=== PATIENT | female | born 1955 | race Caucasian/White ===

== ENCOUNTER 2020-12-21 10:23 | Outpatient (CLI) | payer BC, SELFPAY ==
--- NOTE | ~2020-12-21 | XR_ITS ---
EXAMINATION: XR foot LT min 3V DATE: 12/21/2020 10:50 INDICATION: Left foot pain TECHNIQUE: Dorsoplantar, lateral, and 2 oblique views of the left foot were obtained. COMPARISON: None. FINDINGS: There is mild osteoarthritis of the first metatarsophalangeal joint and several interphalan geal joints. There is no fracture. There is dorsal soft tissue swelling of the foot. Dorsal and plant ar calcaneal enthesophytes are noted. IMPRESSION: 1. Dorsal soft tissue swelling of the foot without acute osseous abnormality identified. Reviewed, dictated and finalized at location B. IMPRESSION: 1. Dorsal soft tissue swelling of the foot without acute osseous abnormality id entified.
== END 2020-12-21 10:24 | disposition home or self-care (01) ==
LOC: CHSIMG 10:29
PROVIDERS: PCP Internal Medicine; Visit Provider Nurse Practitioner Family
DX: M79.672 Pain in left foot (principal)
CPT/HCPCS: 73630

== ENCOUNTER 2021-05-13 16:22 | Outpatient (CLI) | payer BC, SELFPAY ==
--- NOTE | ~2021-05-13 | CT_ITS ---
EXAMINATION: CT abdomen pelvis w con DATE: 05/13/2021 17:33 INDICATION: Abdominal pain with nausea and diarrhea for 3 days TECHNIQUE: Computed tomography (CT) of the abdomen and pelvis was performed with 100 cc Omnipaque 350 intravenous contrast. The dose-length product was 1521.44 mGy-cm. Automated exposure control and ite rative reconstruction technique were employed. COMPARISON: CT dated 05/31/2019. FINDINGS: Lung bases are unremarkable. Heart size is normal. No significant pleural or pericardial ef fusion. No significant vascular abnormality. No lymphadenopathy. Fatty infiltration of the liver. There are gallstones. The spleen, pancreas, adrenal glands and kidne ys are unremarkable. Nonobstructive bowel gas pattern. There is endometrial thickening. Nonobstructiv e bowel gas pattern. Colonic diverticulosis without evidence for diverticulitis. No free air or free fluid. There is mild osteoarthritis of the hips. There is moderate-severe lumbar spondylosis. No acut e osseous abnormality. No hydronephrosis. IMPRESSION: 1. No acute abdominal abnormality. 2: Thickened endomtrial complex. The differential diagnosis includes endometrial hyperplasia, polyp a nd carcinoma. Biopsy is recommended. 3: Hepatic steatosis. 4: Cholelithiasis. Reviewed, dictated and finalized at location A. NESS PROCESS REPRESENTATIVE IMPRESSION: 1. No acute abdominal abnormality. 2: Thickened endomtrial complex. The differential diagnosis includes endometria l hyperplasia, polyp and carcinoma. Biopsy is recommended. 3: Hepatic steatosis. 4: Cholelithiasis.
[2021-05-13 16:39] LABS: Basophils Absolute Auto 0.03 K/mm3 (0.00-0.10); Basophils Percent Auto 0.5 % (0.0-1.0); Eosinophils Absolute Auto 0.06 K/mm3 (0.02-0.50); Eosinophils Percent Auto 1.1 % (1.0-6.0); Hematocrit 39.9 % (35.0-42.0); Hemoglobin 13.1 g/dL (11.7-13.8); Immature Granulocyte Absolute 0.02 K/mm3 (0.00-0.00); Immature Granulocyte Percent A 0.4 % (0.0-0.0); Lymphocytes Absolute Auto 1.81 K/mm3 (1.10-4.50); Mean Corpuscular HGB Conc 32.8 g/dL (32.0-36.0); Mean Corpuscular Hemoglobin 29.4 pg (27.0-31.0); Mean Corpuscular Volume 89.5 fL (78.0-102.0); Mean Platelet Volume 9.8 fl (9.2-11.8); Monocytes Percent Auto 5.5 % (2.0-11.0); Neutrophils Absolute Auto 3.3 K/mm3 (1.7-7.2); Neutrophils Percent Auto 59.5 % (50.0-70.0); Platelet Count Result 300 K/mm3 (150-420); Red Blood Count 4.46 M/mm3 (4.20-5.40); Red Cell Distribution Width 14.3 % (11.6-14.4); White Blood Count 5.5 K/mm3 (4.8-10.8)
[2021-05-13 16:57] LABS: Albumin Level 3.6 g/dL (3.4-5.0); Alkaline Phosphatase 278 U/L (46-116); Amylase 26 U/L (25-115); Anion Gap 10 mmol/L (8-16); Bilirubin,Total 1.4 mg/dL (0.00-1.00); Blood Urea Nitrogen 7 mg/dL (7-18); Calcium 8.8 mg/dL (8.5-10.1); Carbon Dioxide 28 mmol/L (21-32); Chloride 102 mmol/L (98-108); Estimated Glomerular Filt Rate 57; Glucose 93 mg/dL (70-99); Lipase 90 U/L (73-393); Osmolality Calculated 288 mOsm/kg (285-295); Potassium 3.8 mmol/L (3.5-5.1); Sodium 140 mmol/L (136-145); Total Protein 8.4 g/dL (6.4-8.2)
[2021-05-13 16:58] LABS: Alanine Aminotransferase > 1000 U/L (14-59); Aspartate Amino Transferase > 796 U/L (15-37)
[2021-05-14 09:03] LABS: Ethanol < 3 mg/dL (0-6)
[2021-05-18 20:57] LABS: Hepatitis A Antibody IgM Nonreactive; Hepatitis B Core Antibody Nonreactive (Nonreactive); Hepatitis B Surface Antigen Nonreactive (Nonreactive); Hepatitis C Signal to Cutoff 0.01 ratio (<1.00); Hepatitis C Virus Antibody Nonreactive (Nonreactive)
[2021-05-19 23:27] LABS: Anti Nuclear Antibody Titer 1:40 (Negative)
== END 2021-05-13 16:23 | disposition home or self-care (01) ==
LOC: CHSLAB 16:24
PROVIDERS: PCP Internal Medicine; Visit Provider Nurse Practitioner Family
DX: R10.9 Unspecified abdominal pain (principal); R94.5 Abnormal results of liver function studies
CPT/HCPCS: 36415; 74177; 80053; 80074; 80307; 82150; 83690; 85025; 86038; 86039; Q9967

== ENCOUNTER 2021-05-14 10:13 | Outpatient (CLI) | payer BC, SELFPAY ==
[2021-05-14 11:30] LABS: Alanine Aminotransferase 828 U/L (14-59); Albumin Level 3.6 g/dL (3.4-5.0); Alkaline Phosphatase 266 U/L (46-116); Anion Gap 13 mmol/L (8-16); Aspartate Amino Transferase 559 U/L (15-37); Bilirubin,Total 0.9 mg/dL (0.00-1.00); Blood Urea Nitrogen 8 mg/dL (7-18); Calcium 8.6 mg/dL (8.5-10.1); Carbon Dioxide 25 mmol/L (21-32); Chloride 102 mmol/L (98-108); Estimated Glomerular Filt Rate 55; Glucose 89 mg/dL (70-99); Osmolality Calculated 287 mOsm/kg (285-295); Potassium 4.2 mmol/L (3.5-5.1); Sodium 140 mmol/L (136-145); Total Protein 7.9 g/dL (6.4-8.2)
== END 2021-05-14 10:14 | disposition home or self-care (01) ==
LOC: CHSLAB 10:16
PROVIDERS: PCP Internal Medicine; Visit Provider Nurse Practitioner Family
DX: R94.5 Abnormal results of liver function studies (principal)
CPT/HCPCS: 36415; 80053

== ENCOUNTER 2021-05-15 09:00 | Outpatient (CLI) | payer BC, SELFPAY ==
[2021-05-15 10:17] LABS: Alanine Aminotransferase 590 U/L (14-59); Albumin Level 3.7 g/dL (3.4-5.0); Alkaline Phosphatase 240 U/L (46-116); Anion Gap 11 mmol/L (8-16); Aspartate Amino Transferase 252 U/L (15-37); Bilirubin,Total 0.6 mg/dL (0.00-1.00); Blood Urea Nitrogen 10 mg/dL (7-18); Calcium 8.9 mg/dL (8.5-10.1); Carbon Dioxide 26 mmol/L (21-32); Chloride 102 mmol/L (98-108); Estimated Glomerular Filt Rate 56; Glucose 99 mg/dL (70-99); Osmolality Calculated 287 mOsm/kg (285-295); Potassium 4.2 mmol/L (3.5-5.1); Sodium 139 mmol/L (136-145); Total Protein 7.9 g/dL (6.4-8.2)
== END 2021-05-15 09:01 | disposition home or self-care (01) ==
LOC: CHSLAB 09:02
PROVIDERS: PCP Internal Medicine; Visit Provider Internal Medicine
DX: R94.5 Abnormal results of liver function studies (principal)
CPT/HCPCS: 36415; 80053

== ENCOUNTER 2021-05-17 08:56 | Outpatient (CLI) | payer BC, SELFPAY ==
[2021-05-17 09:12] LABS: Appearance Urine Cloudy (Clear); Bilirubin Urine 1+ (Negative); Color Urine Yellow (Yellow); Glucose Urine UA Negative (Negative); Ketones Urine Negative (Negative); Leukocyte Esterase Ur Trace (Negative); Nitrate Urine Negative (Negative); Protein Urine Negative (Negative); Specific Grav Ur >= 1.030 (1.010-1.020); Urobilinogen Urine 0.2 mg/dL (0.2-1.0); pH Urine 5.5 (5.0-8.0)
[2021-05-17 09:19] LABS: Add Urine Microscopic? YES; Bacteria Urine 4+ /hpf; Blood Urine Trace-Intact (Negative); RBC Urine 0-2 /hpf (0-2); Squamous Epithelial Cell Urine Many /hpf (Few)
[2021-05-17 09:36] LABS: Alanine Aminotransferase 302 U/L (14-59); Albumin Level 3.6 g/dL (3.4-5.0); Alkaline Phosphatase 178 U/L (46-116); Anion Gap 10 mmol/L (8-16); Aspartate Amino Transferase 73 U/L (15-37); Bilirubin,Total 0.4 mg/dL (0.00-1.00); Blood Urea Nitrogen 8 mg/dL (7-18); Calcium 8.7 mg/dL (8.5-10.1); Carbon Dioxide 27 mmol/L (21-32); Chloride 104 mmol/L (98-108); Estimated Glomerular Filt Rate 52; Glucose 113 mg/dL (70-99); Osmolality Calculated 291 mOsm/kg (285-295); Sodium 141 mmol/L (136-145); Total Protein 7.6 g/dL (6.4-8.2)
== END 2021-05-17 08:57 | disposition home or self-care (01) ==
LOC: CHSLAB 08:59
PROVIDERS: PCP Internal Medicine; Visit Provider Internal Medicine
DX: R94.5 Abnormal results of liver function studies (principal); N39.0 Urinary tract infection, site not specified
CPT/HCPCS: 36415; 80053; 81001

== ENCOUNTER 2021-05-24 11:34 | Outpatient (CLI) | payer BC, SELFPAY ==
[2021-05-24 12:12] LABS: Alanine Aminotransferase 58 U/L (14-59); Albumin Level 3.5 g/dL (3.4-5.0); Alkaline Phosphatase 127 U/L (46-116); Anion Gap 10 mmol/L (8-16); Aspartate Amino Transferase 17 U/L (15-37); Bilirubin,Total 0.2 mg/dL (0.00-1.00); Blood Urea Nitrogen 16 mg/dL (7-18); Calcium 8.4 mg/dL (8.5-10.1); Carbon Dioxide 26 mmol/L (21-32); Chloride 105 mmol/L (98-108); Estimated Glomerular Filt Rate > 60; Glucose 91 mg/dL (70-99); Osmolality Calculated 293 mOsm/kg (285-295); Potassium 4.4 mmol/L (3.5-5.1); Sodium 141 mmol/L (136-145); Total Protein 7.7 g/dL (6.4-8.2)
== END 2021-05-24 11:35 | disposition home or self-care (01) ==
LOC: CHSLAB 11:36
PROVIDERS: PCP Internal Medicine; Visit Provider Internal Medicine
DX: R94.5 Abnormal results of liver function studies (principal)
CPT/HCPCS: 36415; 80053

== ENCOUNTER 2021-05-30 15:52 | Outpatient (CLI) | payer BC, SELFPAY ==
[2021-05-30 17:33] LABS: Basophils Absolute Auto 0.04 K/mm3 (0.00-0.10); Basophils Percent Auto 0.7 % (0.0-1.0); Eosinophils Absolute Auto 0.09 K/mm3 (0.02-0.50); Eosinophils Percent Auto 1.6 % (1.0-6.0); Hematocrit 37.9 % (35.0-42.0); Hemoglobin 12.7 g/dL (11.7-13.8); Immature Granulocyte Absolute 0.01 K/mm3 (0.00-0.00); Immature Granulocyte Percent A 0.2 % (0.0-0.0); Lymphocytes Absolute Auto 2.58 K/mm3 (1.10-4.50); Lymphocytes Percent Auto 44.6 % (18.0-42.0); Mean Corpuscular HGB Conc 33.5 g/dL (32.0-36.0); Mean Corpuscular Hemoglobin 29.7 pg (27.0-31.0); Mean Corpuscular Volume 88.8 fL (78.0-102.0); Mean Platelet Volume 11.3 fl (9.2-11.8); Monocytes Absolute Auto 0.38 K/mm3 (0.10-0.90); Monocytes Percent Auto 6.6 % (2.0-11.0); Neutrophils Absolute Auto 2.7 K/mm3 (1.7-7.2); Neutrophils Percent Auto 46.3 % (50.0-70.0); Platelet Count Result 302 K/mm3 (150-420); Red Blood Count 4.27 M/mm3 (4.20-5.40); Red Cell Distribution Width 14.1 % (11.6-14.4); White Blood Count 5.8 K/mm3 (4.8-10.8)
[2021-05-30 17:45] LABS: Alanine Aminotransferase 737 U/L (14-59); Albumin Level 3.6 g/dL (3.4-5.0); Alkaline Phosphatase 211 U/L (46-116); Anion Gap 11 mmol/L (8-16); Aspartate Amino Transferase 663 U/L (15-37); Bilirubin,Total 0.8 mg/dL (0.00-1.00); Blood Urea Nitrogen 13 mg/dL (7-18); Calcium 9.2 mg/dL (8.5-10.1); Carbon Dioxide 28 mmol/L (21-32); Chloride 102 mmol/L (98-108); Estimated Glomerular Filt Rate 57; Glucose 81 mg/dL (70-99); Osmolality Calculated 291 mOsm/kg (285-295); Potassium 4.4 mmol/L (3.5-5.1); Sodium 141 mmol/L (136-145); Total Protein 7.8 g/dL (6.4-8.2)
== END 2021-05-30 15:53 | disposition home or self-care (01) ==
LOC: CHSLAB 15:54
PROVIDERS: PCP Internal Medicine; Visit Provider Internal Medicine
DX: R10.9 Unspecified abdominal pain (principal)
CPT/HCPCS: 36415; 80053; 85025

== ENCOUNTER 2021-05-31 10:44 | Outpatient (CLI) | payer BC, SELFPAY ==
[2021-05-31 11:44] LABS: Alanine Aminotransferase 540 U/L (14-59); Albumin Level 3.5 g/dL (3.4-5.0); Alkaline Phosphatase 198 U/L (46-116); Amylase 38 U/L (25-115); Anion Gap 10 mmol/L (8-16); Aspartate Amino Transferase 356 U/L (15-37); Bilirubin,Total 0.4 mg/dL (0.00-1.00); Blood Urea Nitrogen 14 mg/dL (7-18); Calcium 8.8 mg/dL (8.5-10.1); Carbon Dioxide 28 mmol/L (21-32); Chloride 101 mmol/L (98-108); Estimated Glomerular Filt Rate 56; Glucose 79 mg/dL (70-99); Lipase 97 U/L (73-393); Osmolality Calculated 287 mOsm/kg (285-295); Potassium 4.6 mmol/L (3.5-5.1); Sodium 139 mmol/L (136-145); Total Protein 7.7 g/dL (6.4-8.2)
== END 2021-05-31 10:45 | disposition home or self-care (01) ==
PROVIDERS: PCP Internal Medicine; Visit Provider Nurse Practitioner Family
DX: R10.9 Unspecified abdominal pain (principal)
CPT/HCPCS: 36415; 80053; 82150; 83690

== ENCOUNTER 2021-06-19 07:54 | Outpatient (CLI) | payer BC, SELFPAY ==
--- NOTE | 2021-06-19 08:00 | ECG_ITS ---
Measurements Intervals [place] Rate: 71 P: 38 HI: 161 QRS: 22 QRSD: 79 T: 31 QT: 370 QTc: 404 Interpretive Statements SINUS RHYTHM LOW QRS VOLTAGE IN PRECORDIAL LEADS BASELINE ARTIFACT- I, II, III, AVR, AVL, V2-V6 BORDERLINE ECG Electronically Signed On 06-19-2021 9:57:54 HEALTH ADVISOR by Luis Angel Flores D.O.
== END 2021-06-19 07:55 | disposition home or self-care (01) ==
LOC: ANHSURGERY 07:57
PROVIDERS: PCP Internal Medicine; Visit Provider Surgery
DX: Z01.818 Encounter for other preprocedural examination (principal); K80.20 Calculus of gallbladder without cholecystitis without obstruction; Z87.891 Personal history of nicotine dependence
CPT/HCPCS: 36415; 86850; 86900; 86901; 93005

== ENCOUNTER 2021-06-24 00:29 | Day surgery (SDC) | payer BC, SELFPAY ==
[2021-06-13 14:11] VITALS: BMI 45.1
--- NOTE | 2021-06-13 14:15 | PC.NURSE ---
Report to the Outpatient Waiting Room, entrance under the green pavilion located off [facility], at time _1130 on date __06/24/21 . OR Time: _1:30 PM . - You and your visitor will be asked a series of questions to screen for COVID 19 for your protection. - A mask is required within the hospital. - Only one visitor is allowed at this time. Patient visitors will be guided where to wait when not with patient. Preoperative COVID Testing Requirements: No COVID Test needed if: (proof is required; if not received patient will have Rapid Test prior to entry) - Patient has received COVID Vaccine at least 14 days prior to procedure date or - Patient has positive COVID test result within last 90 days of surgery date. COVID Test needed if above criteria is not met If not COVID vaccinated a COVID test must be conducted within 72 hours of surgery and patient is asked to isolate self from time of testing until procedure. You will go to the [facility] for your COVID testing. The [facility] is located at the corner of [address] [facility]. You will only be called if COVID results are positive and your surgeon may reschedule your elective surgery date. Patients may have clear liquids (water, carbonated beverages, clear teas, apple juice) until 3 hours prior to surgery with a maximum of 20 ounces. - No food from midnight until time of surgery - Infants may have breast milk until 4 hours before surgery, formula 6 hours prior to surgery. - Children will be allowed to drink immediately following surgery. If applicable, please bring a bottle or sippy cup to assist with drinking. Juice, water, soda, and popsicles are readily available. For infants on formula, please bring formula the day of surgery. Pacifiers are allowed. Take the following medications with a SIP of water the morning of surgery: NONE Medications to discontinue per physician NONE Date to take last dose Please no make-up, nail faroese, hairspray, perfume, deodorant, or body powder the day of surgery. No jewelry (including any body piercings) or valuables the day of surgery, leave them at home. Please take a shower or bath the night before, or the morning of, surgery with an antibacterial soap. Wear comfortable, loose fitting clothing. Children are encouraged to wear pajamas. - Jewelry must be removed prior to entering the operating room. Rings and piercings that are not removed may be cut off. - The hospital will not accept responsibility for valuables. - Please leave all valuables, including medications, at home the day of surgery. HIBICLENS SHOWER MORNING OF SURGERY If you are going home after surgery, a licensed carrier driver must drive you home. - NO public transportation without another adult. - We recommend that an adult stay with you for 24 hours following discharge. - We also recommend that you do not drive, make important decision, drink alcoholic beverages, or take any drugs that were not prescribed by your health care provider for at least 24 hours after your discharge time. For Pediatric surgeries, we recommend two adults accompany the child home (only one inside the building at this time). Follow any additional instructions given to you from your surgeon. Telephone instructions given to _PATIENT and asked if any additional questions and then verbalized understanding. Patient advised to call surgeon office or pre surgery nurse liaison [phone] if any additional questions.
[2021-06-24] VITALS (9 sets, daily range): BP systolic 107–139; BP diastolic 56–90; PULSE 51–77; RESP 10–20; TEMP 36.3–36.6; O2SAT 93–100
--- NOTE | 2021-06-24 11:28 | WPDHPUPDATE1 ---
History and Physical Update Update Date/Time: 06/24/21 11:28 History and Physical has been reviewed, including an updated exam of the patient. There are NO changes in the patient's condition. Risks, benefits, and alternatives have been discussed and questions answered. Patient agrees to proceed with procedure.
[2021-06-24] MEDS: ACETAMINOPHEN 500 MG TABLET 1000 MG PO (11:49)
[2021-06-24] MEDS: LACTATED RINGERS 1,000 ML 30 ML IV CONT ×2 (11:50→14:20)
[2021-06-24] MEDS: KETOROLAC 15 MG/ML VIAL (*BKC) IV PUSH (12:07)
--- NOTE | 2021-06-24 12:27 | P.PNAN_ITS ---
Anes - Initial Pre Proc Eval Procedure: Operation Date: 06/24/21 13:30 Proposed Procedures p Laparoscopic Cholecystectomy - Damián Nichols DO Date/Time: 06/24/21 12:27 Surgeon: Damián Nichols DO Pre Op Diagnosis: symptomatic cholelithiasis Patient Data Age: 65 Gender: F Height: 1.7 m Weight: 132 kg Last Vital Signs Temp 36.3 C L 06/24/21 12:14 Pulse 71 06/24/21 12:14 Resp 20 06/24/21 12:14 BP 120/73 06/24/21 12:14 Pulse Ox 99 06/24/21 12:14 Allergies Allergy/AdvReac Type Severity Reaction Status Date / Time No Known Allergies Allergy Verified 06/24/21 11:47 Home Medications Medication Instructions Recorded Confirmed Type bpzfkys-exxkzqoqrrasx-rqhxulat 250 1 tablet PO Q4-6H PRN 06/03/21 06/13/21 History mg-250 mg-65 mg tablet clobetasol 0.05 % topical cream 1 applic TOPICAL PRN PRN 06/03/21 06/13/21 History famotidine 20 mg tablet 20 mg PO PRN PRN 06/03/21 06/24/21 History cetirizine [Zyrtec] 10 mg PO DAILY 06/13/21 06/24/21 History Patient hx anesthesia problems: none and other (motion sickness) Family hx anesthesia problems: none Results Review: All pre-operative results and documents have been reviewed as part of the pre-operative evaluation. [facility] Past Medical History Medical History Anemia Arthritis Depression Dyslipidemia GERD (gastroesophageal reflux disease) Obesity, morbid, BMI 40.0-49.9 Family History Family History Father Family history of chronic obstructive pulmonary disease Diabetes mellitus Osteoarthritis Craniopharyngioma Sibling Family history of coronary artery disease, Onset Age: 50 Mother Family history of coronary artery disease, Onset Age: 78 Heart disease Hyperlipidemia Other Family history of malignant neoplasm of breast Social History Social History Smoking packs per day: 1 Smoking cigarettes per day: 20.0 Years smoked: 20 Smoking pack-years: 20.00 Smoking status: Former smoker Tobacco type: cigarettes Second hand tobacco smoke exposure: No Smoking end date: 06/22/00 Alcohol intake: current Living arrangements: alone Spiritual care concerns: No Anes - Eval Final PreProcedure Day of Procedure 06/24/21 12:27 Patient weight: morbidly obese Heart: regular rate and rhythm Lungs: decreased breath sounds Airway: Mallampati scale class II Neurological: alert and oriented Last oral intake: >/= 8 hours ASA classification: III Emergent: no Anesthetic plan: proceed Anesthesia type and monitoring: general ETT and standard monitoring Results Review: All pre-operative results and documents have been reviewed as part of the pre-operative evaluation. Informed Consent: The patient's anesthetic plan and its attendant risks and benefits were discussed with the patient/family/POA. Questions were solicited and answers provided to the satisfaction of the patient/family/POA.
[2021-06-24] MEDS: SCOPOLAMINE 1.5 MG PATCH TRANSDERM (12:31)
[2021-06-24] MEDS: ceFAZolin 3 GM/D5W 100 ML 100 ML IVPB (12:58)
[2021-06-24] MEDS: BUPIVACAINE/EPINEPHRINE 0.5% 10 ML VIAL 30 ML INFILTRATE (13:11)
--- NOTE | 2021-06-24 14:10 | SUR.OPER ---
Ebl=50ml
--- NOTE | 2021-06-24 14:16 | W.PM.PROC2 ---
Procedure Note - Detailed Date of Procedure 06/24/21 Pre-op Diagnosis symptomatic cholelithiasis Post-op Diagnosis same Procedure Performed Laparoscopic Cholecystectomy Surgeon Damián Nichols, DO Anesthesia general and local (0.5% bupivacaine) Indications This is a 65-year-old woman who presents with upper abdominal pain that she has been experiencing for the past 2 months. She was having intermittent episodes of pain and lab workup showed significantly elevated transaminases. She had an ultrasound which showed evidence of cholelithiasis and hepatic steatosis. Discussions were made with the patient about treatment options and decision was made to proceed with laparoscopic cholecystectomy, possible open. Findings Laparoscopic cholecystectomy was performed. The gallbladder had many pericholecystic adhesions and appeared somewhat contracted near the fundus. The cystic duct was slightly dilated but did not appear to be containing any gallstones. No other significant abnormalities were identified. The gallbladder was removed and sent to the lab for pathology. There was some bleeding from the cystic artery and from the liver bed. The cystic artery clips appeared to be somewhat twisted at 1st. I was able to remove these clips and then replace new clips on the cystic artery and then hemostasis appeared adequate. Due to some bleeding along the gallbladder fossa liver bed, I chose to spray SurgiFlo to help with hemostasis. Description of Procedure Procedure as well as risks, benefits, and alternatives were discussed with patient. Written consent was obtained and placed in chart prior to procedure. The patient was brought back to surgical suite. Patient was placed in supine position on operating table. Time-out was done to confirm patient and procedure. Patient was then intubated by the anesthesia department. Abdomen was prepped and draped in sterile fashion using chlorhexidine prep. 0.5% bupivacaine with epinephrine was infiltrated at each site of incision. A 5 millimeter incision was made near the umbilicus, and a 5 millimeter Optiview trocar was advanced through the abdominal layers under direct visualization. Once inside the abdominal cavity, carbon dioxide was insufflated to create a pneumoperitoneum. The camera was inserted and the abdomen was inspected. No immediate abnormalities were identified. The patient was placed in reverse Trendelenburg position and rotated slightly to the left. An 11 millimeter incision was made in the subxiphoid region, and an 11 millimeter trocar was inserted under direct visualization. Two 5 millimeter incisions were made in the right upper quadrant, and two 5 millimeter trocars were inserted under direct visualization. The gallbladder was identified and grasped at the fundus and retracted superiorly. It was then grasped at the infundibulum retracted laterally. Careful dissection around the neck of the gallbladder was performed using blunt dissection with a [place] grasper and hook electrocautery. The cystic duct was identified, and a window was created behind it. The cystic artery was also identified and a window was created behind it. The critical view of safety was identified, visualizing the cystic duct running directly into the neck of the gallbladder, and the cystic artery running directly into the wall of the gallbladder. A 5 millimeter clip ground crewman was then used to place 2 clips proximally and 1 clip distally on both the cystic duct and cystic artery. They were then both transected using endoscopic scissors. Once safely away from the katt hepatitis, the gallbladder was dissected free from the liver bed using hook electrocautery. Hemostasis was achieved along the way. The gallbladder was removed completely and then removed through the subxiphoid port. The liver bed was then inspected. Hemostasis appeared adequate, and our clips appeared secure. The area was gently irrigated with sterile saline. No other
[2021-06-24] MEDS: ONDANSETRON INJ 4 MG/2 ML VIAL IV PUSH (15:12)
== END 2021-06-24 16:30 | disposition home or self-care (01) ==
PROVIDERS: PCP Internal Medicine; Visit Provider Surgery
PROC: 0FT44ZZ Resection of Gallbladder, Percutaneous Endoscopic Approach (ICD-10-PCS; CPT 47562; principal; 2021-06-24 13:30)
DX: K81.1 Chronic cholecystitis (principal); E78.5 Hyperlipidemia, unspecified; D64.9 Anemia, unspecified; K21.9 Gastro-esophageal reflux disease without esophagitis; F32.9 Major depressive disorder, single episode, unspecified; E66.01 Morbid (severe) obesity due to excess calories; Z68.42 Body mass index [BMI] 45.0-49.9, adult; Z87.891 Personal history of nicotine dependence
CPT/HCPCS: 47562; 36415; 86850; 86900; 86901; 88304; 93005; A9270; J0690; J1100; J1170; J1200; J1885; J2405; J2704; J2710; J3010; J7030; J7120

== ENCOUNTER 2021-09-10 09:47 | Outpatient (CLI) | payer BC, SELFPAY ==
--- NOTE | ~2021-09-10 | XR_ITS ---
XR knee LT 3V 09/10/2021 10:07 Indication: Left knee pain Procedure: 3 views left knee Comparison: No prior studies for comparison. Findings: There is mild-moderate osteoarthritis of the with loose bodies adjacent to the joint space. No fracture or traumatic malalignment. No significant joint effusion. Impression: 1: Mild-moderate osteoarthritis of the left knee. Reviewed, dictated and finalized at location A. Impression: 1: Mild-moderate osteoarthritis of the left knee.
== END 2021-09-10 09:48 | disposition home or self-care (01) ==
LOC: CHSLAB 09:50
PROVIDERS: PCP Internal Medicine; Visit Provider Nurse Practitioner Family
DX: M25.562 Pain in left knee (principal)
CPT/HCPCS: 73562

== ENCOUNTER 2021-09-17 10:32 | Outpatient (CLI) | payer BC, SELFPAY ==
--- NOTE | ~2021-09-17 | MR_ITS ---
EXAMINATION: MR knee LT wo con DATE: 09/17/2021 11:38 INDICATION: Medial left knee pain post fall 6 weeks prior TECHNIQUE: Magnetic resonance imaging (MRI) of the left knee was performed without intravenous contra st. Sequences included coronal PD-weighted FSE, coronal PD-weighted FS FSE, sagittal T2-weighted FSE , sagittal PD-weighted FS FSE and axial PD weighted fat saturated FSE. COMPARISON: None. FINDINGS: Medial compartment: For near full-thickness radial tear at the body of the medial meniscus. Partial-thickness cartilage l oss with chondral surface regularity along the medial tibial plateau and anterior, central to lesser degree posterior weightbearing medial femoral condyle. No degenerative subchondral changes. Lateral compartment: Small paired beak configuration tear beginning at the inner free edge of the meniscal body extending slightly posteriorly and peripherally involving the inner half of the lateral meniscal body. Partial- thickness chondral ulceration and deep fissuring along the anterior weightbearing lateral femoral con dyle with subtle underlying cortical irregularity without cystic or marrow signal changes. Patellofemoral compartment: Full/near full-thickness cartilage loss involving a large portion of the lateral trochlea and lateral patellar facet with underlying cortical irregularity and mild cystlike changes and minimal increased marrow signal. Less severe partial thickness chondral ulceration and fissuring at the medial facet a nd trochlea with small central subchondral osteophyte at the medial trochlea. Ligaments and tendons: Anterior cruciate ligament is normal. Partial tear of the posterior cruciate ligament with mild thick ening and subtle increased signal. Mild thickening at the proximal aspect of the medial and fibular c ollateral ligaments consistent with mild scarring related to chronic sprains. The extensor mechanism is normal. The visualized medial and lateral hamstring tendons as well as the iliotibial band are nor mal. Fluid: Small left knee joint effusion at the suprapatellar pouch. No intra-articular loose osteochondral bod ies identified. There are several osteochondral bodies synovitis amount of fluid in the popliteal rec ess. Osseous/other: No fracture or pathologic marrow replacing process. IMPRESSION: 1. Medial and lateral meniscal tears. 2. Tricompartmental osteoarthritis, severe with extensive high-grade chondromalacia in the lateral pa tellofemoral compartment and mild with regions of moderate to high-grade chondromalacia in the medial and lateral compartments. 3. Mild scarring consistent with chronic sprains of the posterior cruciate and proximal aspect of the medial and fibular collateral ligaments. Reviewed, dictated and finalized at location A. IMPRESSION: 1. Medial and lateral meniscal tears. 2. Tricompartmental osteoarthritis, severe with extensive high-grade chondromal acia in the lateral patellofemoral compartment and mild with regions of moderat e to high-grade chondromalacia in the medial and lateral compartments. 3. Mild scarring consistent with chronic sprains of the posterior cruciate and proximal aspect of the medial and fibular collateral ligaments.
== END 2021-09-17 10:33 | disposition home or self-care (01) ==
LOC: CHSIMG 10:33
PROVIDERS: PCP Internal Medicine; Visit Provider Nurse Practitioner Family
DX: M25.562 Pain in left knee (principal)
CPT/HCPCS: 73721

== ENCOUNTER 2021-10-04 09:03 | Outpatient (CLI) | payer BC, SELFPAY ==
[2021-10-04 09:16] LABS: Basophils Absolute Auto 0.04 K/mm3 (0.00-0.10); Basophils Percent Auto 0.5 % (0.0-1.0); Eosinophils Absolute Auto 0.09 K/mm3 (0.02-0.50); Eosinophils Percent Auto 1.2 % (1.0-6.0); Hematocrit 37.8 % (35.0-42.0); Hemoglobin 12.2 g/dL (11.7-13.8); Immature Granulocyte Absolute 0.03 K/mm3 (0.00-0.00); Immature Granulocyte Percent A 0.4 % (0.0-0.0); Lymphocytes Absolute Auto 3.21 K/mm3 (1.10-4.50); Lymphocytes Percent Auto 41.8 % (18.0-42.0); Mean Corpuscular HGB Conc 32.3 g/dL (32.0-36.0); Mean Corpuscular Volume 93.1 fL (78.0-102.0); Mean Platelet Volume 9.8 fl (9.2-11.8); Monocytes Absolute Auto 0.51 K/mm3 (0.10-0.90); Monocytes Percent Auto 6.6 % (2.0-11.0); Neutrophils Absolute Auto 3.8 K/mm3 (1.7-7.2); Neutrophils Percent Auto 49.5 % (50.0-70.0); Platelet Count Result 281 K/mm3 (150-420); Red Blood Count 4.06 M/mm3 (4.20-5.40); White Blood Count 7.7 K/mm3 (4.8-10.8)
[2021-10-04 09:21] LABS: Add Urine Microscopic? YES; Appearance Urine Clear (Clear); Bilirubin Urine Negative (Negative); Blood Urine 1+ (Negative); Color Urine Light Yellow (Yellow); Glucose Urine UA Negative (Negative); Ketones Urine Negative (Negative); Leukocyte Esterase Ur 1+ (Negative); Nitrate Urine Negative (Negative); Protein Urine Negative (Negative); Specific Grav Ur >= 1.030 (1.010-1.020); Urobilinogen Urine 0.2 mg/dL (0.2-1.0)
[2021-10-04 09:27] LABS: Bacteria Urine Trace /hpf; RBC Urine 0-2 /hpf (0-2); Squamous Epithelial Cell Urine Moderate /hpf (Few)
[2021-10-04 10:08] LABS: Alanine Aminotransferase 20 U/L (14-59); Albumin Level 3.5 g/dL (3.4-5.0); Alkaline Phosphatase 89 U/L (46-116); Anion Gap 9 mmol/L (8-16); Aspartate Amino Transferase 17 U/L (15-37); Bilirubin,Total 0.2 mg/dL (0.00-1.00); Blood Urea Nitrogen 16 mg/dL (7-18); Calcium 8.4 mg/dL (8.5-10.1); Carbon Dioxide 27 mmol/L (21-32); Chloride 104 mmol/L (98-108); Estimated Glomerular Filt Rate > 60; Glucose 101 mg/dL (70-99); Osmolality Calculated 291 mOsm/kg (285-295); Potassium 4.2 mmol/L (3.5-5.1); Sodium 140 mmol/L (136-145); Total Protein 7.5 g/dL (6.4-8.2)
== END 2021-10-04 09:04 | disposition home or self-care (01) ==
LOC: CHSLAB 09:04
PROVIDERS: PCP Internal Medicine; Visit Provider Internal Medicine
DX: Z01.818 Encounter for other preprocedural examination (principal)
CPT/HCPCS: 36415; 80053; 81001; 85025

== ENCOUNTER 2021-10-18 01:17 | Day surgery (SDC) | payer BC, SELFPAY ==
--- NOTE | 2021-10-07 15:38 | PC.NURSE ---
Report to the Outpatient Waiting Room, entrance under the green pavilion located off [facility], at time _0830 on date _10/18/21 . OR Time: _1030 . - You and your visitor will be asked a series of questions to screen for COVID 19 for your protection. - A mask is required within the hospital. Preoperative COVID Testing Requirements: No COVID Test needed if: (proof is required; if not received patient will have Rapid Test prior to entry) - Patient has received COVID Vaccine at least 14 days prior to procedure date or - Patient has positive COVID test result within last 90 days of surgery date. COVID Test needed if above criteria is not met If not COVID vaccinated a COVID test must be conducted within 72 hours of surgery and patient is asked to isolate self from time of testing until procedure. You will go to the [employer] [facility] for your COVID testing. The [employer] [facility] site is located at the corner of [address] [facility]. You will only be called if COVID results are positive and your surgeon may reschedule your elective surgery date. Patients may have clear liquids (water, carbonated beverages, clear teas, apple juice) until 3 hours prior to surgery with a maximum of 20 ounces. - No food from midnight until time of surgery - Infants may have breast milk until 4 hours before surgery, infant formula 6 hours prior to surgery. - Children will be allowed to drink immediately following surgery. If applicable, please bring a bottle or sippy cup to assist with drinking. Juice, water, soda, and popsicles are readily available. For infants on formula, please bring formula the day of surgery. Pacifiers are allowed. Take the following medications with a SIP of water the morning of surgery: ____NONE Medications to discontinue per physician NONE Date to take last dose Please no make-up, nail taiwanese, hairspray, perfume, deodorant, or body powder the day of surgery. No jewelry (including any body piercings) or valuables the day of surgery, leave them at home. Please take a shower or bath the night before, or the morning of, surgery with an antibacterial soap. Wear comfortable, loose fitting clothing. Children are encouraged to wear pajamas. - Jewelry must be removed prior to entering the operating room. Rings and piercings that are not removed may be cut off. - The hospital will not accept responsibility for valuables. - Please leave all valuables, including medications, at home the day of surgery. If you are going home after surgery, a licensed trolley coach driver must drive you home. - NO public transportation without another adult. - We recommend that an adult stay with you for 24 hours following discharge. - We also recommend that you do not drive, make important decision, drink alcoholic beverages, or take any drugs that were not prescribed by your health care provider for at least 24 hours after your discharge time. For Pediatric surgeries, we recommend two adults accompany the child home (only one inside the building at this time). One visitor will be allowed to accompany the patient into the hospital. Patients visitor will be instructed to remain with patient at all times or leave the building. We will allow the visitor to come back to the postoperative area when patient is ready. Follow any additional instructions given to you from your surgeon. Telephone instructions given to __PT and asked if any additional questions and then verbalized understanding. Patient advised to call surgeon office or pre surgery nurse liaison [phone] if any additional questions.
[2021-10-07 15:43] VITALS: BMI 47.0
[2021-10-18] VITALS (10 sets, daily range): BP systolic 90–141; BP diastolic 56–96; PULSE 64–88; RESP 12–19; TEMP 36.1–36.4; O2SAT 96–100
--- NOTE | 2021-10-18 07:14 | WPDHPUPDATE1 ---
History and Physical Update Update Date/Time: 10/18/21 07:14 History and Physical has been reviewed, including an updated exam of the patient. There are NO changes in the patient's condition. Risks, benefits, and alternatives have been discussed and questions answered. Patient agrees to proceed with procedure.
--- NOTE | 2021-10-18 08:20 | P.PNAN_ITS ---
Anes - Eval Pre Procedure Procedure: Operation Date: 10/18/21 10:30 Proposed Procedures p Left Knee Arthroscopy, Proceed As Indicated - Arron White MD Date/Time: 10/18/21 08:20 Surgeon: Christopher Pre Op Diagnosis: Left knee medial and lateral meniscus tears Patient Data Age: 66 Gender: F Height: 1.7 m Weight: 136.1 kg Allergies Allergy/AdvReac Type Severity Reaction Status Date / Time No Known Allergies Allergy Verified 10/07/21 15:30 Home Medications Medication Instructions Recorded Confirmed Type ehgipti-tqzhrpkzdssyq-nbhvshnb 250 1 tablet PO Q4-6H PRN 06/03/21 10/07/21 History mg-250 mg-65 mg tablet clobetasol 0.05 % topical cream 1 applic TOPICAL PRN PRN 06/03/21 10/07/21 History famotidine 20 mg tablet 20 mg PO PRN PRN 06/03/21 10/07/21 History cetirizine [Zyrtec] 10 mg PO DAILY 06/13/21 10/07/21 History Patient hx anesthesia problems: none Family hx anesthesia problems: none Results Review: All pre-operative results and documents have been reviewed as part of the pre-operative evaluation. [facility] Past Medical History Medical History Anemia Arthritis Depression Dyslipidemia GERD (gastroesophageal reflux disease) Obesity, morbid, BMI 40.0-49.9 Surgical History Surgical History Hx laparoscopic cholecystectomy 06/24/21 Family History Family History Father Family history of chronic obstructive pulmonary disease Diabetes mellitus Osteoarthritis Craniopharyngioma Sibling Family history of coronary artery disease, Onset Age: 50 Mother Family history of coronary artery disease, Onset Age: 78 Heart disease Hyperlipidemia Other Family history of malignant neoplasm of breast Social History Social History Smoking packs per day: 1 Smoking cigarettes per day: 20.0 Years smoked: 20 Smoking pack-years: 20.00 Smoking status: Former smoker Tobacco type: cigarettes Second hand tobacco smoke exposure: No Smoking end date: 06/22/00 Alcohol intake: current Living arrangements: alone Spiritual care concerns: No Exam Day of Procedure 10/18/21 08:20 Patient weight: morbidly obese Airway: Mallampati scale class II
--- NOTE | 2021-10-18 09:00 | WPDHPUPDATE1 ---
History and Physical Update Update Date/Time: 10/18/21 09:00 History and Physical has been reviewed, including an updated exam of the patient. There are NO changes in the patient's condition. Risks, benefits, and alternatives have been discussed and questions answered. Patient agrees to proceed with procedure.
[2021-10-18] MEDS: CELECOXIB 200 MG CAPSULE PO (09:15)
[2021-10-18] MEDS: ACETAMINOPHEN 500 MG TABLET 1000 MG PO (09:15)
--- NOTE | 2021-10-18 10:03 | P.PNAN_ITS ---
Anes - Initial Pre Proc Eval Procedure: Operation Date: 10/18/21 10:30 Proposed Procedures p Left Knee Arthroscopy, Proceed As Indicated - Arron White MD Date/Time: 10/18/21 10:03 Surgeon: Arron White MD Pre Op Diagnosis: Left knee medial and lateral meniscus tears Patient Data Age: 66 Gender: F Height: 1.7 m Weight: 136.1 kg Allergies Allergy/AdvReac Type Severity Reaction Status Date / Time No Known Allergies Allergy Verified 10/18/21 09:29 Home Medications Medication Instructions Recorded Confirmed Type [id number]-nscrmrblrvbnr-yzywwfzn 250 1 tablet PO Q4-6H PRN 06/03/21 10/18/21 History mg-250 mg-65 mg tablet clobetasol 0.05 % topical cream 1 applic TOPICAL PRN PRN 06/03/21 10/07/21 History famotidine 20 mg tablet 20 mg PO PRN PRN 06/03/21 10/18/21 History cetirizine [Zyrtec] 10 mg PO DAILY 06/13/21 10/18/21 History Patient hx anesthesia problems: none Family hx anesthesia problems: none Results Review: All pre-operative results and documents have been reviewed as part of the pre-operative evaluation. [facility] Past Medical History Medical History Anemia Arthritis Depression Dyslipidemia GERD (gastroesophageal reflux disease) Obesity, morbid, BMI 40.0-49.9 Surgical History Surgical History Hx laparoscopic cholecystectomy 06/24/21 Family History Family History Father Family history of chronic obstructive pulmonary disease Diabetes mellitus Osteoarthritis Craniopharyngioma Sibling Family history of coronary artery disease, Onset Age: 50 Mother Family history of coronary artery disease, Onset Age: 78 Heart disease Hyperlipidemia Other Family history of malignant neoplasm of breast Social History Social History Smoking packs per day: 1 Smoking cigarettes per day: 20.0 Years smoked: 20 Smoking pack-years: 20.00 Smoking status: Former smoker Tobacco type: cigarettes Second hand tobacco smoke exposure: No Smoking end date: 06/22/00 Alcohol intake: current Living arrangements: alone Spiritual care concerns: No Anes - Eval Final PreProcedure Day of Procedure 10/18/21 10:03 Patient weight: morbidly obese Heart: regular rate and rhythm Lungs: clear to auscultation Airway: Mallampati scale class II Neurological: alert and oriented Last oral intake: >/= 8 hours ASA classification: III Emergent: no Anesthetic plan: proceed Anesthesia type and monitoring: general GIVS and standard monitoring Results Review: All pre-operative results and documents have been reviewed as p art of the pre-operative evaluation. Informed Consent: The patient's anesthetic plan and its attendant risks and benefits were discussed with the patient/family/POA. Questions were solicited and answers provided to the satisfaction of the patient/family/POA.
[2021-10-18] MEDS: LACTATED RINGERS 1,000 ML 30 ML IV CONT ×2 (10:22→12:44)
--- NOTE | 2021-10-18 10:31 | SUR.PREOP ---
1015- CRUTCH TRAINING DONE WITH PT. PACKET PRINTED AND REVIEWED. AFTER COMPLETED PT WELL ANGELLA RN THOUGHT A WALKER MAY BE A BETTER OPTION. PT'S BALANCE WAS NOT WELL AND SHE FELT UNSTEADY ON CRUTCHES. CALLED DR. PERRIN'S OFFICE AND PHYSICAL THERAPY. EUNICE PLACED IN EMR. 1025- PHYSICAL THERAPY AT BEDSIDE. SHOES PLACED ON PT AND TEACHING DONE IN PRE OP.
[2021-10-18] MEDS: ceFAZolin 3 GM/D5W 100 ML 100 ML IVPB (11:03)
[2021-10-18] MEDS: BUPIVACAINE HCL 0.5% PF 30 ML VIAL INFILTRATE (11:34)
[2021-10-18] MEDS: fentaNYL CITRATE INJ (*CRX) 100 MCG/2 ML VIAL 25 MCG IV PUSH ×4 (12:44→13:03)
--- NOTE | 2021-10-18 12:47 | W.PM.PROC2 ---
Procedure Note - Detailed Date of Procedure 10/18/21 Pre-op Diagnosis Left knee medial and lateral meniscus tears Post-op Diagnosis Same (LEFT MEDIAL AND LATERAL MENISCUS TEAR) Procedure Performed LEFT KNEE SCOPE Surgeon Arron White MD Anesthesia General Description of Procedure PATIENT WAS TAKEN TO THE OR. THE LEFT LEG WAS PREPPED AND DRAPED STERILE. TROCARS WERE PLACED IN THE USUAL FASHION. CAMERA WAS INTRODUCED. THERE WAS CHONDROMALACIA TO THE PATELLA FEMORAL JOINT. THERE WAS A LOT OF SYNOVITIS IN ALL COMPARTMENTS. THE MEDIAL COMPARTMENT SHOWED CHONDROMALACIA TO THE MEDIAL FEMORAL CONDYLE. A SHAVER WAS USED TO PREFORM A CHONDROPLASTY. THERE WAS A COMPLEX MEDIAL MENISCUS TEAR. THE TEAR WAS RESECTED WITH A BITER AND A SHAVER DOWN TO A SMOOTH BASE. ABOUT 30% OF THE MENISCUS WAS REMOVED. THE ACL WAS INTACT. THE LATERAL MENISCUS WAS TORN AT THE MID SECTION. THE TEAR WAS RESECTED. THE LATERAL COMPARTMENT HAD MINIMAL CHONDROMALACIA AT THE LATERAL PLATEAU. CHONDROPLASTY WAS PREFORMED. A SYNOVECTOMY WAS PREFORMED WELL. THE PATELLO FEMORAL JOINT UNDERWENT CHONDROPLASTY. THERE WAS GRADE 3 CHONDROMALACIA IN MOST OF THE TROCHLEA AND PART OF THE PATELLA. SYNOVECTOMY WAS PREFORMED IN THE SUPERIOR MEDIAL COMPARTMENT. THE WOUNDS WERE APPROXIMATED WITH 4.0 NYLON. STERILE DRESSING WAS APPLIED. PATIENT WAS EXTUBATED. Estimated Blood Loss 5 Complications No immediate complications Condition Stable Disposition PACU
== END 2021-10-18 14:48 | disposition home or self-care (01) ==
PROVIDERS: PCP Internal Medicine; Visit Provider Orthopaedic Surgery
PROC: (CPT 29870; principal; 2021-10-18 10:30)
DX: S83.232A Complex tear of medial meniscus, current injury, left knee, initial encounter (principal); S83.282A Other tear of lateral meniscus, current injury, left knee, initial encounter; M94.262 Chondromalacia, left knee; M65.862 Other synovitis and tenosynovitis, left lower leg; X50.0XXA Overexertion from strenuous movement or load, initial encounter; K21.9 Gastro-esophageal reflux disease without esophagitis; E66.01 Morbid (severe) obesity due to excess calories; Z68.42 Body mass index [BMI] 45.0-49.9, adult; Z87.891 Personal history of nicotine dependence
CPT/HCPCS: 29880; 97116; 97161; A9270; J0690; J1040; J1100; J2250; J2405; J2704; J3010; J7120

== ENCOUNTER 2022-02-08 12:17 | Emergency (ER) | payer BC, SELFPAY ==
[2022-02-08 12:25] VITALS: BP 166/89; PULSE 83; RESP 20; TEMP 37; O2SAT 98
--- NOTE | 2022-02-08 12:30 | ED.ANIMALBIT ---
HPI - Animal Bite General Chief Complaint: Animal Bite Stated Complaint: cat bite on left hand Time Seen by Provider: 02/08/22 12:24 Source: patient Mode of arrival: ambulatory Limitations: no limitations History of Present Illness HPI narrative: this is a 56-year-old female that presents with a cat bite to her left hand occurred about an hour earlier currently there is some redness with puncture wounds to the left hand with no drainage no fever chills has a strong brisk radial pulse on the left. complaint: animal bite Onset (ago): hour(s) Animal: cat Description of animal: household pet Mechanism: bite and scratch Pain description: sharp Related Data Home Medications Medication Instructions Recorded Confirmed nhlyjog-ojrcmvpscswjl-uxlrmroo 250 1 tablet PO Q4-6H PRN Headache 06/03/21 10/29/21 mg-250 mg-65 mg tablet (Excedrin Extra Strength) clobetasol 0.05 % topical cream 1 applic topical PRN PRN PSORIASIS 06/03/21 10/29/21 famotidine 20 mg tablet (Pepcid) 20 mg PO PRN PRN Heartburn 06/03/21 10/29/21 cetirizine 10 mg tablet (Zyrtec) 10 mg PO DAILY 06/13/21 10/29/21 Allergies Allergy/AdvReac Type Severity Reaction Status Date / Time No Known Allergies Allergy Verified 10/29/21 09:17 Review of Systems Review of Systems: All systems reviewed & are unremarkable except as noted in HPI and below PMFSH Past Medical History Medical History Anemia Arthritis Depression Dyslipidemia GERD (gastroesophageal reflux disease) Obesity, morbid, BMI 40.0-49.9 Surgical History Surgical History Hx laparoscopic cholecystectomy 06/24/21 Family History Family History Father Family history of chronic obstructive pulmonary disease Diabetes mellitus Osteoarthritis Craniopharyngioma Sibling Family history of coronary artery disease, Onset Age: 50 Mother Family history of coronary artery disease, Onset Age: 78 Heart disease Hyperlipidemia Other Family history of malignant neoplasm of breast Social History Social History Smoking packs per day: 1 Smoking cigarettes per day: 20.0 Years smoked: 20 Smoking pack-years: 20.00 Tobacco type: cigarettes Second hand tobacco smoke exposure: No Smoking end date: 06/22/00 Alcohol intake: current Spiritual care concerns: No Exam Const: General: healthy appearing and no acute distress Nutritional Appearance: well nourished Limitations: no limitations HENMT: Head: normal to inspection Mouth: Yes Normal oral and palatal mucosa present Eyes: Conjunctivae: conjunctivae normal Neck: Neck: normal visual inspection, no lymphadenopathy and no meningeal signs Chest: Chest palpation & inspection: normal inspection of the chest Resp: Effort & Inspection: normal respiratory effort Auscultation: clear to auscultation bilaterally Cardio: Rate: regular rate Rhythm: regular rhythm GI: GI Palp: Yes Soft to palpation Auscultation: normal bowel sounds Skin: General skin exam: normal color Rashes: no rashes Wounds: wounds noted Other: Puncture wounds to the left hand with a scratch sameer Neuro: General: patient oriented x3 and moves all extremities Extrem: General: normal to inspection Psych: Mental Status: mental status grossly normal Affect: normal affect Course Course Emergency Course: assessment of patient, given IM ceftriaxone and updated with tetanus Critical Care Time Critical Care Time Critical Care Time: No Discharge Plan Discharge Clinical Impression: Cat bite Patient Disposition: Home, Self-Care Condition: Stable Instructions: Antibiotic Form, Animal Bite (ED) Additional Instructions: take medicine as prescribed and follow-up with primary care physician if symptoms pers
[2022-02-08] MEDS: TETANUS,DIPHTHERIA,AC PERTUSSIS ADULT 0.5 ML (ADACEL) IM (13:00)
[2022-02-08] MEDS: cefTRIAXone 1 GM, LIDOCAINE HCL 1% LOCAL INJ 2.1 ML IM (13:01)
== END 2022-02-08 13:10 | disposition home or self-care (01) ==
PROVIDERS: Emergency Provider Emergency Medicine; PCP Internal Medicine
DX: S61.452A Open bite of left hand, initial encounter (principal); W55.01XA Bitten by cat, initial encounter
CPT/HCPCS: 90471; 90715; 96372; 99283; J0696

== ENCOUNTER 2022-02-19 14:05 | Outpatient (CLI) | payer BC, SELFPAY ==
--- NOTE | ~2022-02-19 | MM_ITS ---
EXAMINATION: MM screening [facility] w [facility] HISTORY: Screening mammogram TECHNIQUE: Craniocaudal and mediolateral oblique 3-D tomosynthesis images were obtained and synthetic 2-D images were generated. CAD analysis was submitted and interpreted. COMPARISON: 11/07/2018 BREAST PARENCHYMAL COMPOSITION: There are scattered areas of fibroglandular density. FINDINGS: There is no suspicious mass, calcification, or architectural distortion to suggest malignan cy in either breast. There has been no suspicious interval change. IMPRESSION: 1. No mammographic evidence of malignancy. 2. Recommend routine screening mammography in one year. BI-RADS Category 1: Negative Reviewed, dictated and finalized at location A.
== END 2022-02-19 14:06 | disposition home or self-care (01) ==
LOC: CHSIMG 14:06
PROVIDERS: PCP Internal Medicine; Visit Provider Internal Medicine
DX: Z12.31 Encounter for screening mammogram for malignant neoplasm of breast (principal)
CPT/HCPCS: 77063; 77067

== ENCOUNTER 2022-09-24 11:57 | Outpatient (CLI) | payer MEDICARE, SELFPAY ==
--- NOTE | ~2022-09-24 | XR_ITS ---
EXAM: XR shoulder LT min 2V DATE: 09/24/2022 12:39 HISTORY: LT SHOULDER PAIN,CHRONIC ,NKI . COMPARISON: 10/30/2008, images only. FINDINGS: Normal mineralization. Old healed mid left clavicular fracture. No acute fracture or dislo cation. No lytic or blastic lesion. Degenerative changes, mild in the AC joint and moderate in the gl enohumeral joint. No erosion or periosteal change. Soft tissues within normal limits. IMPRESSION: Polyarticular osteoarthritis of the left shoulder. Reviewed, dictated and finalized at location K.
--- NOTE | ~2022-09-24 | XR_ITS ---
EXAM: XR ankle RT min 3V DATE: 09/24/2022 12:39 HISTORY: RT ANKLE PAIN,CHRONIC . COMPARISON: None available. FINDINGS: Normal mineralization. Old fracture fragment at the tip of the medial malleolus. No acute fracture or dislocation. No lytic or blastic lesion. Scattered degenerative change, mild in the tibio talar joint, moderate in the midfoot. Achilles and plantar enthesopathy. No erosion or periosteal liliya nge. Soft tissues within normal limits. Small ankle joint effusion. IMPRESSION: No acute osseous finding in the right ankle. Reviewed, dictated and finalized at location K.
[2022-09-24 12:14] LABS: Basophils Absolute Auto 0.04 K/mm3 (0.00-0.10); Basophils Percent Auto 0.5 % (0.0-1.0); Eosinophils Absolute Auto 0.09 K/mm3 (0.02-0.50); Eosinophils Percent Auto 1.1 % (1.0-6.0); Hematocrit 37.3 % (35.0-42.0); Hemoglobin 11.9 g/dL (11.7-13.8); Immature Granulocyte Absolute 0.03 K/mm3 (0.00-0.00); Immature Granulocyte Percent A 0.4 % (0.0-0.0); Lymphocytes Absolute Auto 3.25 K/mm3 (1.10-4.50); Lymphocytes Percent Auto 39.3 % (18.0-42.0); Mean Corpuscular HGB Conc 31.9 g/dL (32.0-36.0); Mean Corpuscular Hemoglobin 28.2 pg (27.0-31.0); Mean Corpuscular Volume 88.4 fL (78.0-102.0); Mean Platelet Volume 9.7 fl (9.2-11.8); Monocytes Absolute Auto 0.58 K/mm3 (0.10-0.90); Neutrophils Absolute Auto 4.3 K/mm3 (1.7-7.2); Neutrophils Percent Auto 51.7 % (50.0-70.0); Platelet Count Result 290 K/mm3 (150-420); Red Blood Count 4.22 M/mm3 (4.20-5.40); Red Cell Distribution Width 14.4 % (11.6-14.4); White Blood Count 8.3 K/mm3 (4.8-10.8)
[2022-09-24 12:16] LABS: Appearance Urine Clear (Clear); Blood Urine Trace-Intact (Negative); Color Urine Light Yellow (Yellow); Glucose Urine UA Negative (Negative); Ketones Urine Negative (Negative); Nitrate Urine Negative (Negative); Protein Urine Negative (Negative); Specific Grav Ur 1.025 (1.010-1.020); pH Urine 5.5 (5.0-8.0)
[2022-09-24 12:17] LABS: Bilirubin Urine Negative (Negative); Leukocyte Esterase Ur 1+ LEU/UL (Negative); Urobilinogen Urine 0.2 mg/dL (0.2-1.0)
[2022-09-24 12:36] LABS: Add Urine Microscopic? YES; Bacteria Urine Trace /hpf; RBC Urine 0-2 /hpf (0-2); Squamous Epithelial Cell Urine Few /hpf (Few)
[2022-09-24 12:55] LABS: Alanine Aminotransferase 23 U/L (14-59); Albumin Level 3.5 g/dL (3.4-5.0); Alkaline Phosphatase 104 U/L (46-116); Anion Gap 9 mmol/L (8-16); Aspartate Amino Transferase 21 U/L (15-37); Bilirubin,Total 0.3 mg/dL (0.00-1.00); Blood Urea Nitrogen 17 mg/dL (7-18); CRP 0.5 mg/dL (0.0-0.9); Calcium 9.1 mg/dL (8.5-10.1); Carbon Dioxide 29 mmol/L (21-32); Chloride 103 mmol/L (98-108); Cholesterol 231 mg/dL (0-200); Estimated Glomerular Filt Rate > 60; Free T4 Free Thyroxine 0.94 ng/dL (0.76-1.46); Glucose 97 mg/dL (70-99); HDL Direct 54 mg/dL (40-60); LDL Cholesterol Calculated 133 mg/dL (<130); Osmolality Calculated 293 mOsm/kg (285-295); Potassium 4.7 mmol/L (3.5-5.1); Sodium 141 mmol/L (136-145); Thyroid Stimulating Hormone 1.58 uIU/mL (0.36-3.74); Total Protein 7.9 g/dL (6.4-8.2); Triglycerides 221 mg/dL (0-150)
[2022-09-30 13:31] LABS: Anti Nuclear Antibody Titer 1:40 (Negative)
== END 2022-09-24 11:58 | disposition home or self-care (01) ==
LOC: CHSLAB 12:01
PROVIDERS: PCP Internal Medicine; Visit Provider Nurse Practitioner Family
DX: M25.571 Pain in right ankle and joints of right foot (principal); M25.512 Pain in left shoulder; M79.602 Pain in left arm; E78.2 Mixed hyperlipidemia; R82.90 Unspecified abnormal findings in urine; M19.012 Primary osteoarthritis, left shoulder
CPT/HCPCS: 36415; 73030; 73610; 80053; 80061; 81001; 84439; 84443; 85025; 86038; 86039; 86140; 87086

== ENCOUNTER 2022-10-02 09:55 | Outpatient (CLI) | payer MEDICARE, SELFPAY ==
--- NOTE | ~2022-10-02 | MR_ITS ---
MRI of the right ankle Clinical history: Pain Technique: Coronal proton-density and proton-density fat-sat images, axial proton-density and proton- density fat-sat images, and sagittal proton-density and proton-density fat-sat images were acquired. Findings: Syndesmotic ligaments are intact. Anterior and posterior talofibular ligaments, and calcane ofibular ligament are intact. Deltoid ligament is intact. Medial flexor tendons, peroneal tendons, anterior extensor tendons are intact. There is moderate to a dvanced tendinosis of the distal Achilles tendon, which is thickened and hyperintense. No partial tea r evident. No osteochondral lesion of the talar dome identified. There is mild amorphous marrow edema at the pos terior calcaneal tuberosity. There is fluid distention of the retrocalcaneal bursa. Plantar fascia in tact. Normal signal preserved in the sinus Tarsi. There is mild subcutaneous soft tissue edema diffus kamlesh, nonspecific. 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 Associated mild edema in the posterior calcaneal tuberosity and fluid distention of the retrocalcanea l bursa suggest Ari's syndrome. Reviewed, dictated and finalized at location . 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 Associated mild edema in the posterior calcaneal tuberosity and fluid distentio n of the retrocalcaneal bursa suggest Ari's syndrome.
== END 2022-10-02 09:56 | disposition home or self-care (01) ==
LOC: CHSIMG 09:57
PROVIDERS: PCP Internal Medicine; Visit Provider Nurse Practitioner Family
DX: M25.571 Pain in right ankle and joints of right foot (principal); M76.61 Achilles tendinitis, right leg; M79.89 Other specified soft tissue disorders
CPT/HCPCS: 73721; 97014; 97110; 97161; G0283

== ENCOUNTER 2022-10-02 14:21 | Outpatient (RCR) | payer MEDICARE, SELFPAY ==
--- NOTE | 2022-10-02 15:29 | PTOPEVAL1 ---
Assessment and note entered by JT File, PT Evaluation Information Assessment Status Evaluation Diagnosis L shoulder and arm pain Onset 09/25/22 Subjective Information patient reports she fell and injured her R shoulder years ago. however, about 1 year ago she began to have increased pain. she reports the pain then came and went for a while, but is now flared up again. she reports she has difficulty getting comfortable to fall asleep at night. she reports she also has difficulty with reaching straight out to her side/behind her, puting on a bra, and puting on a shirt/jacket. she reports she did have an xray last week. patient reports pain radiates to the lateral shoulder/deltoid area. she reports no symptoms in the hand or elbow. Reported Pain Level Pain Score 1: Self Report Assessment PT Clinical Summary mrs. santana is a 67 yo woman who presents to skilled PT with an acute flare up of chronic L shoulder pain. she had a fall years ago, but since 2 injections to the L shoulder she has had increased pain. she presents this date with pain in the L shoulder, difficulty with functional reaching, and positive special test for RTC tendonitis/OA of the L shoulder. she would benefit from continued skilled PT to improve her objective/functional deficits and return to her PLOF/QOL. Plan of Care Interventions Electrical Stimulation,Hot Pack/Cold Pack,Manual Therapy,Neuro Re-education,Patient/Caregiver Educati,Therapeutic Activities,Therapeutic Exercise PT Services Indicated Yes Treatment Frequency and 3x weekly for 12 visits Duration These treatments will address the objective and functional deficits as defined above. The patient will be advanced safely and appropriately in order for the patient to progress towards his/her prior level of function. Additional exercises will be introduced and as well as a comprehensive home exercise program upon discharge, if needed, ?to ensure carryover of functional gains achieved in the clinic. This treatment plan has been reviewed and agreement upon by the patient.
--- NOTE | 2022-10-15 08:11 | PTOPREEVAL ---
Assessment and note entered by Danette Waters DPT Evaluation Information Assessment Status Re-evaluation Diagnosis L shoulder and arm pain, R achilles pain Onset 09/25/22 Subjective Information Patient reports she has had R achilles pain for a while now but pain has increased recently. She reports pain is worse after walking and it is painful for her to push down on the gas pedal. 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 Angela reports shoulder is improved since start of PT with improved sleeping and better ROM. Reported Pain Level Pain Score 1,0: Self Report Assessment PT Clinical Summary Angela presents to PT with orders for addition of R achilles pain to treatment plan. Patient demonstrates decreased R foot and ankle strength, pain at insertion of the achilles and impaired gait indicating possible achilles tendonitis. She is limited in walking due to pain and also has pain with using the gas pedal while driving. She would benefit from continued PT to address L shoulder and R achilles pain and return to PLOF. Plan of Care Interventions Electrical Stimulation,Gait Training,Hot Pack/Cold Pack,Manual Therapy,Neuro Re-education,Patient/ Caregiver Educati,Therapeutic Activities, Therapeutic Exercise PT Services Indicated Yes Treatment Frequency and 3x weekly for 12 additional visits Duration These treatments will address the objective and functional deficits as defined above. The patient will be advanced safely and appropriately in order for the patient to progress towards his/her prior level of function. Additional exercises will be introduced and as well as a comprehensive home exercise program upon discharge, if needed, ?to ensure carryover of functional gains achieved in the clinic. This treatment plan has been reviewed and agreement upon by the patient.
--- NOTE | 2022-11-10 07:48 | PTOPPROGNS ---
Assessment and note entered by Danette Waters DPT Evaluation Information Assessment Status Progress Diagnosis L shoulder and arm pain, R achilles pain Onset 09/25/22 Subjective Information Patient reports her shoulder is giving her no problems. She reports her achilles pain has been coming and going but on Thursday she felt a pop and since then she has had very minimal pain. She reports today she was able to push on the car gas pedal with no increase in pain. Assessment PT Clinical Summary Patient presents today for 10 visits of [facility] of L shoulder pain and R achilles pain. She demosntrates improved UE and LE strength, improved ROM and decreased pain levels. She reports no issues with L shoulder with daily function but reports that R achilles pain continues to come and go especially with activities that require PF and prolonged standing. She will benefit from continuing with remaining 2 visits to address impairments and return to PLOF. Plan of Care Interventions Electrical Stimulation,Gait Training,Hot Pack/Cold Pack,Manual Therapy,Neuro Re-education,Patient/ Caregiver Educati,Therapeutic Activities, Therapeutic Exercise PT Services Indicated Yes Treatment Frequency and continue with remaining 2 visits Duration These treatments will address the objective and functional deficits as defined above. The patient will be advanced safely and appropriately in order for the patient to progress towards his/her prior level of function. Additional exercises will be introduced and as well as a comprehensive home exercise program upon discharge, if needed, ?to ensure carryover of functional gains achieved in the clinic. This treatment plan has been reviewed and agreement upon by the patient.
--- NOTE | 2022-11-10 07:49 | PTOPPROGNS ---
Assessment and note entered by Danette Waters DPT Evaluation Information Assessment Status Progress Diagnosis L shoulder and arm pain, R achilles pain Onset 09/25/22 Subjective Information Patient reports her shoulder is giving her no problems. She reports her achilles pain has been coming and going but on Thursday she felt a pop and since then she has had very minimal pain. She reports today she was able to push on the car gas pedal with no increase in pain. Assessment PT Clinical Summary Patient presents today for 10 visits of treatment of L shoulder pain and R achilles pain. She demonstrates improved UE and LE strength, improved ROM and decreased pain levels. She reports no issues with L shoulder with daily function but reports that R achilles pain continues to come and go especially with activities that require PF and prolonged standing. She will benefit from continuing with remaining 2 visits to address impairments and return to PLOF. Plan of Care Interventions Electrical Stimulation,Gait Training,Hot Pack/Cold Pack,Manual Therapy,Neuro Re-education,Patient/ Caregiver Educati,Therapeutic Activities, Therapeutic Exercise PT Services Indicated Yes Treatment Frequency and continue with remaining 2 visits Duration These treatments will address the objective and functional deficits as defined above. The patient will be advanced safely and appropriately in order for the patient to progress towards his/her prior level of function. Additional exercises will be introduced and as well as a comprehensive home exercise program upon discharge, if needed, ?to ensure carryover of functional gains achieved in the clinic. This treatment plan has been reviewed and agreement upon by the patient.
--- NOTE | 2022-11-14 07:43 | PTOPDC ---
Assessment and note entered by Danette Waters DPT Evaluation Information Assessment Status Re-evaluation Diagnosis L shoulder and arm pain, R achilles pain Onset 09/25/22 Subjective Information Patient reports she has not had any shoulder pain. She reports that her foot pain is much improved. She reports that she has improved ability to walk and push on the gas peddal. She reports ever since she felt a pop in her ankle her pain has significantly decreased. Reported Pain Level Pain Score 1,0: Self Report Assessment PT Clinical Summary Patient made great progress in skilled PT. She made improvements in L shoulder ROM, L shoulder strength, R ankle ROM and R ankle strength as well as an overall decrease in pain. She reports no issues with shoulder and has been able to return to PLOF. She reports her foot pain is not limiting her from doing anything but if she has it in the wrong position she can tell the pain is there. She is independent with HEP and appropriate for DC at this time. Plan of Care PT Services Indicated No
== END 2022-11-14 13:50 | disposition home or self-care (01) ==
LOC: CHSPT 14:21
PROVIDERS: PCP Internal Medicine; Visit Provider Nurse Practitioner Family
DX: M25.512 Pain in left shoulder (principal); M79.602 Pain in left arm
CPT/HCPCS: 97014; 97110; 97140; 97161; G0283

== ENCOUNTER 2023-09-28 07:09 | Outpatient (CLI) | payer MEDICARE, SELFPAY ==
[2023-09-28 07:34] LABS: Basophils Absolute Auto 0.05 K/mm3 (0.00-0.10); Basophils Percent Auto 0.6 % (0.0-1.0); Eosinophils Absolute Auto 0.18 K/mm3 (0.02-0.50); Eosinophils Percent Auto 2.2 % (1.0-6.0); Hematocrit 36.1 % (35.0-42.0); Immature Granulocyte Absolute 0.03 K/mm3 (0.00-0.00); Immature Granulocyte Percent A 0.4 % (0.0-0.0); Lymphocytes Absolute Auto 3.76 K/mm3 (1.10-4.50); Lymphocytes Percent Auto 46.9 % (18.0-42.0); Mean Corpuscular HGB Conc 30.5 g/dL (32-36); Mean Corpuscular Hemoglobin 25.5 pg (27.0-31.0); Mean Corpuscular Volume 83.8 fL (78.0-102.0); Mean Platelet Volume 9.7 fl (9.2-11.8); Monocytes Absolute Auto 0.61 K/mm3 (0.10-0.90); Monocytes Percent Auto 7.6 % (2.0-11.0); Neutrophils Absolute Auto 3.38 K/mm3 (1.70-7.20); Neutrophils Percent Auto 42.3 % (50.0-70.0); Platelet Count Result 376 K/mm3 (150-420); Red Blood Count 4.31 M/mm3 (4.20-5.40); Red Cell Distribution Width 16.1 % (11.6-14.4)
[2023-09-28 08:33] LABS: Alanine Aminotransferase 21 U/L (14-59); Albumin Level 3.6 g/dL (3.4-5.0); Alkaline Phosphatase 99 U/L (46-116); Anion Gap 9 mmol/L (4-12); Aspartate Amino Transferase 16 U/L (15-37); Bilirubin,Total 0.3 mg/dL (0.00-1.00); Blood Urea Nitrogen 18 mg/dL (7-18); Calcium 9.1 mg/dL (8.5-10.1); Carbon Dioxide 28 mmol/L (21-32); Chloride 105 mmol/L (98-108); Cholesterol 213 mg/dL (0-200); Estimated Glomerular Filt Rate > 60; Glucose 92 mg/dL (70-99); HDL Direct 61 mg/dL (40-60); LDL Cholesterol Calculated 132 mg/dL (<130); Osmolality Calculated 295 mOsm/kg (285-295); Sodium 142 mmol/L (136-145); Total Protein 7.7 g/dL (6.4-8.2); Triglycerides 101 mg/dL (0-150)
[2023-09-28 08:36] LABS: Thyroid Stimulating Hormone Reflex 2.68 u/IU/mL (0.36-3.74)
== END 2023-09-28 07:10 | disposition home or self-care (01) ==
LOC: CHSLAB 07:11
PROVIDERS: PCP Family Medicine; Visit Provider Family Medicine
DX: R53.83 Other fatigue (principal); L08.9 Local infection of the skin and subcutaneous tissue, unspecified; E78.2 Mixed hyperlipidemia
CPT/HCPCS: 36415; 80053; 80061; 84443; 85025

== ENCOUNTER 2023-10-02 12:43 | Outpatient (CLI) | payer MEDICARE, SELFPAY ==
--- NOTE | ~2023-10-02 | MM_ITS ---
EXAMINATION: MM screening [facility] BI w [facility] HISTORY: Screening TECHNIQUE: Craniocaudal and mediolateral oblique 3-D tomosynthesis images were obtained and synthetic 2-D images were generated. CAD analysis was submitted and interpreted. COMPARISON: Comparison to multiple prior studies sequentially, with oldest reviewed study dated 02/2019. BREAST PARENCHYMAL COMPOSITION: Not dense: There are scattered areas of fibroglandular density. FINDINGS: There is no evidence of suspicious mass, calcification, or architectural distortion to sugg est malignancy in either breast. There has been no suspicious interval change. IMPRESSION: 1. No mammographic evidence of malignancy. 2. Recommend routine screening mammography in one year. BI-RADS Category 1: Negative Reviewed, dictated and finalized at location A.
--- NOTE | ~2023-10-02 | DEXA_ITS ---
? Bone Density Report? Name:? OBI SANCHEZ Patient ID:??? [id number] Age:? 68 Sex:? Female Ethnicity:? White Date of : 1955 Indication: postmenopausal; screening for osteoporosis; height loss; Referring Provider: Aidee Addison Study: Bone densitometry was performed. Exam Date: October 02, 2023 Accession number: [id number] Bone Density: Region? BMD??? T-score? Z-score?? Classification AP Spine(L1-L4)? 1.120??? 0.7?2.6? Normal Femoral Neck (Left)? 0.803?? -0.4? 1.3? Normal Total Hip (Left)? 1.093??? 1.2? 2.6? Normal Femoral Neck (Right)? 1.020??? 1.5? 3.2? Normal Total Hip (Right)? 1.111??? 1.4? 2.8? Normal Femoral Neck Mean? 0.912??? 0.6? 2.3? Normal Total Hip Mean? 1.102??? 1.3? 2.7? Normal World Health Organization criteria for BMD impression classify patients as: Normal (T-score at or above -1.0), Osteopenia (T-score between -1.0 and -2.5), or Osteoporosis (T-score at or below -2.5). 10-year Fracture Risk: FRAX not reported because: ? All T-scores for Spine Total, Hip Total, Femoral Neck at or above -1.0 Clinical Information Provided by Patient: Patient maximum height was 67 Menopause Age: 52 No regular weight bearing exercise Onset of menses at age 17 Number of children 1 Missed period for more than 6 months in a row Impression: The patient has normal bone mass. Discussion: BONE DENSITY IS ABOVE THE MINIMUM DESIRABLE LEVEL AT ALL SKELETAL SITES TESTED. This patient?s bone mineral density is above the minimum desirable level (T- score -1.0 or better) at all sites measured. The patient should follow a healthful lifestyle (good nutrition with adequate calcium and vitamin D, and appropriate weight-bearing exercise). Follow-Up: Consider repeating this study in 5 years or sooner if there is some new clinical indication. Reported by: Dr. Marito Santana on 10/02/2023 1:09:00 PM. BERT
== END 2023-10-02 12:44 | disposition home or self-care (01) ==
LOC: CHSIMG 12:45
PROVIDERS: PCP Family Medicine; Visit Provider Family Medicine
DX: Z78.0 Asymptomatic menopausal state (principal); Z12.31 Encounter for screening mammogram for malignant neoplasm of breast
CPT/HCPCS: 77063; 77067; 77080

== ENCOUNTER 2024-01-15 08:48 | Outpatient (CLI) | payer MEDICARE, SELFPAY ==
[2024-01-15 09:00] LABS: Hematocrit 34.3 % (35.0-42.0); Mean Corpuscular HGB Conc 32.1 g/dL (32-36); Mean Corpuscular Hemoglobin 28.5 pg (27.0-31.0); Mean Corpuscular Volume 88.9 fL (78.0-102.0); Platelet Count Result 311 K/mm3 (150-420); Red Blood Count 3.86 M/mm3 (4.20-5.40); Red Cell Distribution Width 15.2 % (11.6-14.4); White Blood Count 8.4 K/mm3 (4.8-10.8)
[2024-01-15 10:49] LABS: Ferritin 32 ng/mL (8-252); Folic Acid 12.7 ng/mL (8.6->20); Iron 53 ug/dL (50-170); Percent Iron Saturation 15 % (12-57); Vitamin B12 414 pg/mL (193-986)
== END 2024-01-15 08:49 | disposition home or self-care (01) ==
PROVIDERS: PCP Family Medicine; Visit Provider Family Medicine
DX: D64.9 Anemia, unspecified (principal)
CPT/HCPCS: 36415; 82607; 82728; 82746; 83540; 83550; 85027

== ENCOUNTER 2024-05-12 12:24 | Outpatient (CLI) | payer MEDICARE, SELFPAY ==
[2024-05-12 12:45] LABS: Basophils Absolute Auto 0.04 K/mm3 (0.00-0.10); Basophils Percent Auto 0.5 % (0.0-1.0); Eosinophils Absolute Auto 0.15 K/mm3 (0.02-0.50); Eosinophils Percent Auto 1.9 % (1.0-6.0); Hemoglobin 11.7 g/dL (11.7-13.8); Immature Granulocyte Absolute 0.03 K/mm3 (0.00-0.00); Immature Granulocyte Percent A 0.4 % (0.0-0.0); Lymphocytes Absolute Auto 3.33 K/mm3 (1.10-4.50); Mean Corpuscular HGB Conc 32.5 g/dL (32-36); Mean Corpuscular Hemoglobin 30.1 pg (27.0-31.0); Mean Corpuscular Volume 92.5 fL (78.0-102.0); Mean Platelet Volume 9.8 fl (9.2-11.8); Monocytes Absolute Auto 0.53 K/mm3 (0.10-0.90); Monocytes Percent Auto 6.8 % (2.0-11.0); Neutrophils Absolute Auto 3.66 K/mm3 (1.70-7.20); Neutrophils Percent Auto 47.4 % (50.0-70.0); Platelet Count Result 282 K/mm3 (150-420); Red Blood Count 3.89 M/mm3 (4.20-5.40); Red Cell Distribution Width 13.4 % (11.6-14.4); White Blood Count 7.7 K/mm3 (4.8-10.8)
[2024-05-12 13:23] LABS: Alanine Aminotransferase 23 U/L (14-59); Albumin Level 3.4 g/dL (3.4-5.0); Alkaline Phosphatase 97 U/L (46-116); Anion Gap 10 mmol/L (4-12); Aspartate Amino Transferase 13 U/L (15-37); Bilirubin,Total 0.2 mg/dL (0.00-1.00); Blood Urea Nitrogen 10 mg/dL (7-18); Calcium 8.7 mg/dL (8.5-10.1); Carbon Dioxide 27 mmol/L (21-32); Chloride 105 mmol/L (98-108); Estimated Glomerular Filt Rate > 60; Glucose 102 mg/dL (70-99); Osmolality Calculated 293 mOsm/kg (285-295); Potassium 4.2 mmol/L (3.5-5.1); Sodium 142 mmol/L (136-145); Total Protein 7.3 g/dL (6.4-8.2)
[2024-05-16 15:53] LABS: NIL 0.03 IU/mL; Quantiferon TB Plus, 1T NEGATIVE (NEGATIVE); TB1-NIL 0.01 IU/mL; TB2-NIL 0.03 IU/mL
== END 2024-05-12 12:25 | disposition home or self-care (01) ==
PROVIDERS: PCP Family Medicine
DX: L40.0 Psoriasis vulgaris (principal); Z79.899 Other long term (current) drug therapy
CPT/HCPCS: 36415; 80053; 85025; 86480

== ENCOUNTER 2024-05-23 14:58 | Outpatient (CLI) | payer MEDICARE, SELFPAY ==
--- NOTE | ~2024-05-23 | XR_ITS ---
AP and lateral views of the right hip Clinical history: Pain Findings: No acute fracture or dislocation is seen. Osseous alignment is anatomic. There is moderate degenerative change of the right hip joint. Soft tissues are unremarkable. Impression: Moderate degenerative change of the right hip joint. Reviewed, dictated and finalized at [facility]. PENDENT JEWELER Impression: Moderate degenerative change of the right hip joint.
--- NOTE | ~2024-05-23 | XR_ITS ---
Lumbosacral Spine: AP and lateral views Clinical History: Pain Findings: The normal lordotic curve is maintained. No acute fracture seen. There is 7 mm retrolisthes is of L2 over L3. There is moderate to advanced degenerative change at L1-L2 and L2-L3. There is adva nced facet arthropathy throughout the lumbar spine. The sacroiliac joints are normally outlined. Impression: Moderate to advanced spondylosis, as above. 7 mm retrolisthesis of L2 over L3. Reviewed, dictated and finalized at location [facility] [employer] Impression: Moderate to advanced spondylosis, as above. 7 mm retrolisthesis of L2 over L3.
== END 2024-05-23 14:59 | disposition home or self-care (01) ==
LOC: CHSIMG 15:00
PROVIDERS: PCP Family Medicine; Visit Provider Family Medicine
DX: M25.551 Pain in right hip (principal); M43.06 Spondylolysis, lumbar region
CPT/HCPCS: 72100; 73502

== ENCOUNTER 2024-05-25 10:52 | Outpatient (RCR) | payer MEDICARE, SELFPAY ==
--- NOTE | 2024-05-25 12:00 | OPREHPOC ---
Outpatient Therapy Plan of Care This is a Multidisciplinary Plan of Care that may contain components documented by all disciplines (PT, OT, and ST.) PT Problem 1 PT Problem #1 Knowledge Deficit PT Goal 1 Goal / Goal Update 1. independent and compliant with HEP Target Visit 6 PT Problem 2 PT Problem #2 Pain PT Goal 1 Goal / Goal Update 1. decrease pain at worst in the lower back and R lateral hip to 3/10 or less Target Visit 12 PT Problem 3 PT Problem #3 Impaired Strength PT Goal 1 Goal / Goal Update 1. improve bilateral hip strength to 5/5 overall Target Visit 12 PT Problem 4 PT Problem #4 Impaired Range of Motion PT Goal 1 Goal / Goal Update 1. 10 degrees active lumbar extension without pain 2. 15 degrees or less hamstrings tightness bilaterally Target Visit 12 PT Problem 5 PT Problem #5 Impaired Functional Mobil PT Goal 1 Goal / Goal Update 1. patient to complete 6 minute walk test without rest for 800ft or more 2. patient to salvage determiner kitchen for 1 hour cleaning and cooking without increased pain in the back or R lateral hip 3. LEFS to display 30% or less functional deficits 4. oswestry to display less than 20% functional deficits Target Visit 12
--- NOTE | 2024-05-25 12:00 | PTOPEVAL1 ---
Assessment and note entered by [facility]T [facility], PT Evaluation Information Assessment Status Evaluation ICD-10 Condition Codes (PT) Pain in low back M54.50,M54.16 Other ICD-10 Condition Codes ( M47.816; M16.10 PT) Onset 05/24/24 Subjective Information patient reports she is having 2 different issues. she has pain down the R hip and the R LE when she walks. she reports this is the more chronic issues , but she now has a more acute pain in the R side lower back. she reports she was unable to roll over in bed, and she has pain with walking. she reports she did have xrays of the lumbar spine earlier this week. she reports she has been using a heating pad at home to help, but she still has pain. she reports she has trouble walk, twisting to the R, and rolling over in bed. she reports she has trouble lifting the R LE over to roll in bed. Reported Pain Level Pain Score 4,7: Self Report Assessment PT Clinical Summary mrs. santana is a 68 yo woman who presents to skilled PT services for evaluation and treatment of lower back and R hip pain. despite the signs and symptoms of OA in the R hip, she displays more issues and decreased functional activity performance related to lumbar radiculopathy. she displays decreased lumbar rom (especially into lumbar extension), mm tightness of the hips, and decreased functional activities in extension posture. she would benefit from continued skilled PT to address her objective/functional deficits to improve her quality of life and functional activity performance. Plan of Care Interventions Electrical Stimulation,Gait Training,Hot Pack/Cold Pack,Manual Therapy,Neuro Re-education,Patient/ Caregiver Educati,Therapeutic Activities, Therapeutic Exercise PT Services Indicated Yes Treatment Frequency and 3x weekly for 12 visits Duration These treatments will address the objective and functional deficits as defined above. The patient will be advanced safely and appropriately in order for the patient to progress towards his/her prior level of function. Additional exercises will be introduced and as well as a comprehensive home exercise program upon discharge, if needed, ?to ensure carryover of functional gains achieved in the clinic. This treatment plan has been reviewed and agreement upon by the patient.
--- NOTE | 2024-07-01 14:08 | PCPTNOTE ---
Patient called & cancelled scheduled appointment this date due to weather.
--- NOTE | 2024-07-05 17:30 | PCPTNOTE ---
Patient called & cancelled scheduled appointment this date due to illness.
== END 2024-08-23 23:59 | disposition home or self-care (01) ==
LOC: CHSPT 10:52
PROVIDERS: Visit Provider Family Medicine
DX: M47.816 Spondylosis without myelopathy or radiculopathy, lumbar region (principal); M16.10 Unilateral primary osteoarthritis, unspecified hip
CPT/HCPCS: 97014; 97110; 97161; G0283

== ENCOUNTER 2024-09-13 10:49 | Outpatient (CLI) | payer MEDICARE, SELFPAY ==
--- OUTSIDE RECORDS SUMMARY | 2024-09-13 12:49 | XMS_ITS | Data Portability ---
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 Name Trap Setter Status 06/07/20 21 1 CLOSED Fetus Data First Name Last Name Admitted to NICU Weight (g) Sex Living Outcome Pediatric Complications Fetus ID Race Codes Race Delivery Type 3628.73 6 F Full Term 86808 Vaginal Delivery Caleb Calculation Initial Caleb Date Initial Exam Date Initial Exam Provider Initial Ultrasound Date Last Menstrual Period Date Ultra Sound Weeks Gestation 0 Eighteen To Twenty Week Caleb Update Ultra Sound Date Fundal Height At Umbil Quickening Date Ultra Sound Latest Weeks Gestation Final Caleb Confirmed By Final Caleb Confirmed Date Final Caleb Date Ultra Sound Latest Days Gestation 0 0 Menstrual History Last Menstrual Date Menses Monthly On Bcp Conception Prior Menses Frequency Hcg Plus Date Menarche Onset Age Delivery Information Delivery Date Delivery Type Labor Anesthesia Weeks Gestation Incision Type Labor Labor Length Hrs Delivered By Post Complications Tubal Sterilization Discharge Date Comments 2 Discharge Information Feeding Method Contraceptive Method Maternal HG B and HCT Levels Ob Episode Information Episode Created Date Number of Fetuses Patient Bloodtype Patient rh Status Prepregnancy Weight lbs Domestic Partner Domestic Partner Phone Father Name Trap Setter Status 06/07/20 21 1 CLOSED Fetus Data First Name Last Name Admitted to NICU Weight (g) Sex Living Outcome Pediatric Complications Fetus ID Race Codes Race Delivery Type , Induced 94631 Caleb Calculation Initial Caleb Date Initial Exam Date Initial Exam Provider Initial Ultrasound Date Last Menstrual Period Date Ultra Sound Weeks Gestation 0 Eighteen To Twenty Week Caleb Update Ultra Sound Date Fundal Height At Umbil Quickening Date Ultra Sound Latest Weeks Gestation Final Caleb Confirmed By Final Caleb Confirmed Date Final Caleb Date Ultra Sound Latest Days Gestation 0 0 Menstrual History Last Menstrual Date Menses Monthly On Bcp Conception Prior Menses Frequency Hcg Plus Date Menarche Onset Age Delivery Information Delivery Date Delivery Type Labor Anesthesia Weeks Gestation Incision Type Labor Labor Length Hrs Delivered By Post Complications Tubal Sterilization Discharge Date Comments 9 Discharge Information Feeding Method Contraceptive Method Maternal HG B and HCT Levels Ob Episode Information Episode Created Date Number of Fetuses Patient Bloodtype Patient rh Status Prepregnancy Weight lbs Domestic Partner Domestic Partner Phone Father Name Trap Setter Status 06/07/20 21 1 CLOSED Fetus Data First Name Last Name Admitted to NICU Weight (g) Sex Living Outcome Pediatric Complications Fetus ID Race Codes Race Delivery Type , Induced 23145 Caleb Calculation Initial Caleb Date Initial Exam Date Initial Exam Provider Initial Ultrasound Date Last Menstrual Period Date Ultra Sound Weeks Gestation 0 Eighteen To Twenty Week Caleb Update Ultra Sound Date Fundal Height At Umbil Quickening Date Ultra Sound Latest Weeks Gestation Final Caleb Confirmed By Final Caleb Confirmed Date Final Caleb Date Ultra Sound Latest Days Gestation 0 0 Menstrual History Last Menstrual Date Menses Monthly On Bcp Conception Prior Menses Frequency Hcg Plus Date Menarche Onset Age Delivery Information Delivery Date Delivery Type Labor Anesthesia Weeks Gestation Incision Type Labor Labor Length Hrs Delivered By Post Complications Tubal Sterilization Discharge Date Comments 7 Discharge Information Feeding Method Contraceptive Method Maternal HG B and HCT Levels
--- OUTSIDE RECORDS SUMMARY | 2024-09-13 12:49 | XMS_ITS | Patient Health Record ---
Author Organization [facility] Address [address] [place], [place] [address] Care Team Providers Care Steamfitter Apprentice Name Role Phone Miguel Avila Unavailable Unavailable Allergies No Known Allergies Reason For Referral No Information Medications Medication SIG (Take, Route, Fr equency, Duration) Notes Start Date End Date Status methylPREDNISolone 4 MG as directed Oral ly as directed for 6 days 11/27/2022 Active Social History Tobacco Use: Social History Observation Description Date Details (start date - stop date) Former Smoker NA - NA Tobacco Use/Smoking Question Answer Notes Tobacco use: former smoker Alcohol Screen (Audit-C) Question Answer Notes Did you have a drink contain ing alcohol in the past year? Yes How often did you have a dri nk containing alcohol in the past year? Monthly or less (1 point) Points 1 Interpretation Negative Plan Of Treatment No Information Insurance Providers Payer Name Payer Address Payer Phone Subscriber Number Group Number Insured Name Patient Relationship to Insured Coverage Start Date Coverage End Date Medicare Part B [facility] [address] [place] [address] [id number] OBI SANCHEZ Self - patient is the insured 2 [employer] [address] [place] [address] [id number] OBI SANCHEZ Self - patient is the insured 2 Medical (General) History Medical History History ICD Code acid reflux Leg/Feet cramps Skin Disorder Arthritis Bladder infections Sleep apnea Surgical History Surgery Date(Month/Year) Gall Bladder
--- OUTSIDE RECORDS SUMMARY | 2024-09-13 12:49 | XMS_ITS | Continuity of Care Document ---
Author Organization [facility] Address [address] [place] [address] Phone Care Team Providers Care Master Control Supervisor Name Role Phone Roxann RAMIREZ, Jeremías Unavailable Unavai lable Procedures Procedure Date TTEcho With 2D And M Mode Interpretation Advance Directives Directive Yes / No Effective Date File Name No Information Encounters Encounter Description Practice Location Reason(s) For Visit Diagnoses Date Provider Providers Copied on Encounter [facility], [address], [place], [address], tel:[phone] [facility] No Information Roxann Veronica . [address], [place], [address]. tel:[phone] Referring Provider: Bouchra MARSH Family History Family Member Type Diagnosis Age At Onset No Information Payers Payer name Insurance type Covered green party ID [facility]iza tion(s) [id number] Social History Type Description Quantity Date Captured Comments Sex Female Smoking Status No Information Chief Complaint And Reason For Visit No Information Reason For Referral Reason For Referral No Information History Of Present Illness Encounter Date Complaint History Of Prese nt Illness No Information Functional Status Date Functional Assessmen t No Information Instructions Date Instruction Additional Infor mation No Information Assessments Type Assessment Date No Information Patient Care Teams Name Effective Dates (start - stop) Status Members No Information
[2024-09-15 03:14] LABS: Mumps Virus IgG Antibody <9.00 AU/mL; Rubeola Measles IgG >300.00 AU/mL
== END 2024-09-13 10:50 | disposition home or self-care (01) ==
LOC: CHSLAB 10:50
PROVIDERS: PCP Student in an Organized Health Care Education/Training Program; Visit Provider Student in an Organized Health Care Education/Training Program
DX: Z92.29 Personal history of other drug therapy (principal)
CPT/HCPCS: 36415; 86735; 86762; 86765

== ENCOUNTER 2024-09-28 11:28 | Outpatient (CLI) | payer MEDICARE, SELFPAY ==
--- NOTE | ~2024-09-28 | XR_ITS ---
EXAMINATION: XR chest 2V 09/28/2024 11:53 INDICATION: Dyspnea PROCEDURE: 2 view chest COMPARISON: 09/15/2012 FINDINGS: The lungs are clear. The cardiomediastinal silhouette is within normal limits. There are no pleural effusions. There is no pneumothorax suspected. IMPRESSION: 1: NO ACUTE CARDIOPULMONARY DISEASE. Reviewed, dictated and finalized at location A.
[2024-09-28 11:52] LABS: Basophils Absolute Auto 0.04 K/mm3 (0.00-0.10); Basophils Percent Auto 0.6 % (0.0-1.0); Eosinophils Absolute Auto 0.15 K/mm3 (0.02-0.50); Eosinophils Percent Auto 2.2 % (1.0-6.0); Hematocrit 39.4 % (35.0-42.0); Hemoglobin 12.5 g/dL (11.7-13.8); Immature Granulocyte Absolute 0.05 K/mm3 (0.00-0.00); Immature Granulocyte Percent A 0.7 % (0.0-0.0); Lymphocytes Percent Auto 39.6 % (18.0-42.0); Mean Corpuscular HGB Conc 31.7 g/dL (32-36); Mean Corpuscular Hemoglobin 28.9 pg (27.0-31.0); Mean Platelet Volume 9.8 fl (9.2-11.8); Monocytes Percent Auto 8.8 % (2.0-11.0); Neutrophils Absolute Auto 3.27 K/mm3 (1.70-7.20); Neutrophils Percent Auto 48.1 % (50.0-70.0); Platelet Count Result 264 K/mm3 (150-420); Red Blood Count 4.33 M/mm3 (4.20-5.40); Red Cell Distribution Width 13.1 % (11.6-14.4); White Blood Count 6.8 K/mm3 (4.8-10.8)
[2024-09-28 12:02] LABS: Hemoglobin A1C 6.1 % (<5.7)
[2024-09-28 12:50] LABS: Alanine Aminotransferase 17 U/L (14-59); Albumin Level 3.6 g/dL (3.4-5.0); Alkaline Phosphatase 126 U/L (46-116); Anion Gap 8 mmol/L (4-12); Aspartate Amino Transferase 17 U/L (15-37); Bilirubin,Total 0.3 mg/dL (0.00-1.00); Blood Urea Nitrogen 13 mg/dL (7-18); Carbon Dioxide 29 mmol/L (21-32); Chloride 106 mmol/L (98-108); Cholesterol 185 mg/dL (0-200); Estimated Glomerular Filt Rate 58; Glucose 101 mg/dL (70-99); HDL Direct 49 mg/dL (40-60); LDL Cholesterol Calculated 97 mg/dL (<130); Osmolality Calculated 296 mOsm/kg (285-295); Sodium 143 mmol/L (136-145); Thyroid Stimulating Hormone 1.47 uIU/mL (0.36-3.74); Total Protein 7.9 g/dL (6.4-8.2); Triglycerides 196 mg/dL (0-150)
--- OUTSIDE RECORDS SUMMARY | 2024-09-28 13:12 | XMS_ITS | Patient Health Record ---
Author Organization [facility] Address [address] [place], [place] [address] Care Team Providers Care Cosmetology Educator Name Role Phone Miguel Avila Unavailable Unavailable [...] Date Coverage End Date Medicare Part B [facility] [address] [place] [address] [id number] OBI SANCHEZ Self - patient is the insured 2 [employer] [address] [place] [address] [id number] OBI SANCHEZ Self - patient is the insured 2 Medical (General) History Medical History History ICD Code acid reflux Leg/Feet cramps Skin Disorder Arthritis Bladder infections Sleep apnea Surgical History Surgery Date(Month/Year) Gall Bladder
--- OUTSIDE RECORDS SUMMARY | 2024-09-28 13:12 | XMS_ITS | Continuity of Care Document ---
Author Organization [facility] Address [address] [place] [address] Phone Care Team Providers Care Human Resources Benefits Specialist Name Role Phone Roxann RAMIREZ, Jeremías Unavailable Unavai lable Procedures Procedure Date TTEcho With 2D And M Mode Interpretation Advance Directives Directive Yes / No Effective Date File Name No Information Encounters Encounter Description Practice Location Reason(s) For Visit Diagnoses Date Provider Providers Copied on Encounter [facility], [address], [place], [address], tel:[phone] [facility] No Information Roxann Veronica . [address] [place], [address]. tel:[phone] Referring Provider: Bouchra MARSH Family History Family Member Type Diagnosis Age At Onset No Information Payers Payer name Insurance type Covered alliance party ID Authoriza tion(s) [id number] Social History Type Description Quantity Date Captured [...]
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
== END 2024-09-28 11:29 | disposition home or self-care (01) ==
PROVIDERS: PCP Family Medicine; Visit Provider Student in an Organized Health Care Education/Training Program
DX: Z13.1 Encounter for screening for diabetes mellitus (principal); E07.9 Disorder of thyroid, unspecified; R53.83 Other fatigue; Z13.220 Encounter for screening for lipoid disorders; R06.00 Dyspnea, unspecified; Z13.6 Encounter for screening for cardiovascular disorders
CPT/HCPCS: 36415; 71046; 80053; 80061; 83036; 84439; 84443; 85025